=== PATIENT | male | born 1955 | race Caucasian/White ===

== ENCOUNTER 2018-09-06 07:03 | Day surgery (SDC) | payer BC ==
[2018-09-06] MEDS ORDERED: MIDAZOLAM HCL 2MG/2ML VIAL IV ONE (07:04)
[2018-09-06] MEDS ORDERED: BUPIVACAINE 0.5% W/EPI MPF 30 ML VIAL IVP ONE (07:04)
[2018-09-06] MEDS ORDERED: LIDOCAINE 1% W/EPI 1:200,000 MPF 30ML SQ ONE ×2 (07:04→08:37)
[2018-09-06] MEDS ORDERED: PROPOFOL 10 MG/ML VIAL IV ONE (07:04)
[2018-09-06] MEDS ORDERED: FENTANYL PF 100MCG/2ML VIAL IV ONE (07:04)
[2018-09-06] MEDS ORDERED: LIDOCAINE 2% MDV (20MG/ML) 20ML VIAL IV ONE (07:04)
[2018-09-06] MEDS ORDERED: DEXAMETHASONE PRESERVATIVE FREE 10MG/ML VIAL IV ONE (07:04)
[2018-09-06] MEDS ORDERED: BUPIVACAINE 0.5% W/EPI MPF 30 ML VIAL SQ ONE (08:37)
[2018-09-06] MEDS ORDERED: DEXAMETHASONE 4 MG/ML 1ML VIAL SQ ONE (08:38)
--- NOTE | 2018-09-06 20:51 | Operative Note ---
DATE OF SURGERY: 09/06/2018. PREOPERATIVE DIAGNOSIS: CERVICAL SPONDYLOSIS WITHOUT MYELOPATHY, ICD-10 CODE = M47.812. POSTOPERATIVE DIAGNOSIS: CERVICAL SPONDYLOSIS WITHOUT MYELOPATHY, ICD-10 CODE = M47.812. SURGERY: FLUOROSCOPIC-GUIDED RADIOFREQUENCY RHIZOTOMY BILATERAL CERVICAL FACETS 4-5 AND 5 -6. SURGEON: HANDY PERSAUD D.O. PRIMARY CARE PHYSICIAN: DR. SULLIVAN ANESTHESIA: LOCAL SEDATION. ANESTHESIA PROVIDER: JAKE ROMERO CRNA INDICATION: This patient presents with pain, which is neck and shoulder. Diagnostic imaging does show diffuse multiple levels of facet spondylosis with discs at multiple levels. A previous facet series with 75% relief. Due to the failure of therapy and success of the facet series, the patient presents for rhizotomy for more long-term relief. PROCEDURE: Intravenous line, vital sign monitoring, IV sedation, prepped, draped, sterile technique. The cervical facets in the area of pain were identified and marked at C4-5 and C5-6 bilateral. These were the levels approved by insurance. Skin infiltrated and then, under imaging, a #22 gauge rhizotomy cannula positioned. Stimulation trials conducted. Rhizotomy burn performed. Local with anti-inflammatory into the sites. Topical antibiotics. Sterile dressing was applied. We will monitor and evaluate. cc: Dr. Sullivan JOB NUMBER: [id number] MTDD
== END 2018-09-06 09:25 | disposition home or self-care (01) ==
LOC: SUR 07:03
PROVIDERS: ATTEND Pain Medicine Interventional Pain Medicine
DX: M47.812 Spondylosis without myelopathy or radiculopathy, cervical region (principal); I82.409 Acute embolism and thrombosis of unspecified deep veins of unspecified lower extremity; K50.90 Crohn's disease, unspecified, without complications; M06.9 Rheumatoid arthritis, unspecified; K21.9 Gastro-esophageal reflux disease without esophagitis; E03.9 Hypothyroidism, unspecified; E79.0 Hyperuricemia without signs of inflammatory arthritis and tophaceous disease; Z79.01 Long term (current) use of anticoagulants
CPT/HCPCS: 64633; 64634; 01936; J1100; J3010